=== PATIENT | male | born 1985 | race Caucasian/White ===

== ENCOUNTER 2017-01-25 20:29 | Emergency (ER) | payer OTHER ==
[2017-01-25] MEDS ORDERED: TETRACAINE HCL 0.5% OPH SOLN 2 ML OU ONE (21:34)
--- NOTE | 2017-01-25 22:14 | ER Document Report ---
ED Eye Complaint - General Chief Complaint: Eye Injury Stated Complaint: EYE INJURY Mode of Arrival: Ambulatory Information source: Patient TRAVEL OUTSIDE OF THE [place] IN LAST 30 DAYS: No - HPI Patient complains to provider of: eye injury Onset: This evening Notes: Patient states that his toddler actively poked him in the right eye with his fingernail and he now has what he thinks is a scratch to the eye. He continues to have pain and photophobia. Difficult for him to tell if he has any blurred vision because it hurts for him to open his eye. After his eye is numb his vision seems to be okay. He denies any other injuries. His tetanus is up-to- date. Light makes it worse, nothing makes it better. No drainage. No nausea, vomiting, diarrhea. No fever. No other complaints. Not wear contacts. - Related Data Allergies/Adverse Reactions: No Known Allergies Allergy (Verified 08/08/13 17:20) Past Medical History - Social History Smoking Status: Unknown if Ever Smoked Family History: Reviewed & Not Pertinent Patient has suicidal ideation: No Patient has homicidal ideation: No Renal/ Medical History: Denies: Hx Peritoneal Dialysis Past Surgical History: Reports: Hx Genitourinary Surgery - Circumcised, Hx Myringotomy, Hx Orthopedic Surgery - R FOOT/L HAND - Immunizations Hx Diphtheria, Pertussis, Tetanus Vaccination: - UNKNOWN Review of Systems - Review of Systems -: Yes All other systems reviewed and negative Physical Exam - Vital signs Vitals: Temp Pulse Resp BP Pulse Ox 97.8 F 72 18 144/93 H 98 01/25/17 21:07 01/25/17 21:07 01/25/17 21:07 01/25/17 21:07 01/25/17 21:07 - Notes Notes: GENERAL: alert, cooperative, nontoxic, no distress. HEAD: normocephalic, atraumatic EYES: Pupils equal round react to light bilaterally, extraocular muscles are intact bilaterally. Mild injection to the right eye. No hyphema. No foreign body seen. Small corneal abrasion noted at 6:00 with fluorescein staining. No dendritic lesions. Negative Solomon sign. Patient felt significantly better after tetracaine drops were applied. EARS: no external swelling, no external redness NOSE: atraumatic, no external swelling MOUTH/THROAT: mucous membranes moist and pink NECK: soft, supple, full range of motion, no meningismus. CHEST: no distress, lungs clear and equal throughout. No wheezing, rales, rhonchi. CARDIAC: regular rate and rhythm, no murmur, normal capillary refill, normal pulses. BACK: full range of motion, no CVA tenderness. EXTREMITIES: full range of motion of all extremities. No redness, no swelling. NEURO: alert and oriented 3, no focal deficits, full range of motion of all extremities. PYSCH: appropriate mood, affect. Patient is cooperative. SKIN: pink, warm, dry, no rash. Course - Re-evaluation Re-evalutation: 01/25/17 22:11 Patient is nontoxic and stable vitals. The patient was poked in his right eye by his toddler and now has a small corneal abrasion to the eye. Feeling much better after tetracaine drops. Please see nursing notes for visual acuity. Patient will be discharged home with a prescription for Polytrim. Follow up. Though if not improving in the next 2 days, sooner for increased pain, fever, drainage, or any further concerns. The patient is noted to have elevated blood pressure during today's emergency department visit. The patient was informed of this finding. The patient was instructed that this may be related to pre-hypertension and requires further evaluation with a primary care provider. The patient has no hypertensive symptoms at this time. The patient's emergency department workup and current diagnosis were explained to the patient and or family. Follow-up instructions were provided. Medications if prescribed were discussed. Instructions for when to return to the emergency department including specific worrisome symptoms were discussed with the patient and/or family. - Vital Signs Vital signs: Temp Pulse Resp BP Pulse Ox 97.8 F 72 18 144/93 H 98 01/25/17 21:07 01/25/17 21:07 01/25/17 21:07 01/25/17 21:07 01/25/17 21:07 Discharge - Discharge Clinical Impression: Right corneal abrasion Qualifiers: Encounter type: initial encounter Qualified Code(s): S05.01XA - Injury of conjunctiva and corneal abrasion without foreign body, right eye, initial encounter Condition: Stable Disposition: HOME, SELF-CARE Additional Instructions: His medications as prescribed. Follow-up with eye doctor if not better in 2 days, sooner for increased pain, fever, redness, drainage, borderline vision, or any further concerns. Your blood pressure was elevated during today's visit. Have this rechecked with your doctor. Prescriptions: Polymyxin B Sulf/Trimethoprim [Polytrim Eye Drops] 2 drop OP Q6H #1 bottle Forms: Elevated Blood Pressure
[2017-01-25 22:44] VITALS: BP 151/97
== END 2017-01-25 22:22 | disposition home or self-care (01) ==
LOC: ER 20:29
DX: S05.01XA Injury of conjunctiva and corneal abrasion without foreign body, right eye, initial encounter (principal); W50.0XXA Accidental hit or strike by another person, initial encounter; R03.0 Elevated blood-pressure reading, without diagnosis of hypertension
CPT/HCPCS: 99283

== ENCOUNTER 2018-10-29 21:17 | Emergency (ER) | payer SELFPAY ==
[2018-10-29] MEDS ORDERED: IPRATROPIUM/ALBUTEROL 0.5-2.5 MG/3 ML AMPUL NEB ONE (23:33)
--- NOTE | 2018-10-29 23:35 | ER Document Report ---
ED Medical Screen (RME) - General Chief Complaint: Shortness Of Breath Stated Complaint: SHORTNESS OF BREATH Time Seen by Provider: 10/29/18 23:32 Mode of Arrival: Ambulatory Information source: Patient Notes: 33-year-old male presents to ED for complaint of cough cold congestion body aches dizziness and sweating for 2 weeks. He states he went to the urgent care and was started on doxycycline prednisone Tessalon and albuterol inhaler but is not getting any better. He does have wheezes at this time. He states he has not been febrile. Patient is alert oriented respirations regular and unlabored speaking in full sentences walks with a even steady gait. Patient does have wheezes in the emergency room. He has been ordered a chest x-ray albuterol and DuoNeb nebulizers. He has been taking his prednisone as ordered has 4 pills left taken 60 mg a day. Patient states he is a former smoker and former seizures but does not smoke at this time. I have greeted and performed a rapid initial assessment of this patient. A comprehensive ED assessment and evaluation of the patient, analysis of test results and completion of medical decision making process will be conducted by an additional ED providers. TRAVEL OUTSIDE OF THE [place] IN LAST 30 DAYS: No - Related Data Allergies/Adverse Reactions: No Known Allergies Allergy (Verified 08/08/13 17:20) Past Medical History Renal/ Medical History: Denies: Hx Peritoneal Dialysis Past Surgical History: Reports: Hx Genitourinary Surgery - Circumcised, Hx Myringotomy, Hx Orthopedic Surgery - R FOOT/L HAND - Immunizations Hx Diphtheria, Pertussis, Tetanus Vaccination: - UNKNOWN Physical Exam - Vital signs Vitals: Temp Pulse Resp BP Pulse Ox 98.2 F 100 20 153/85 H 96 10/29/18 21:55 10/29/18 21:55 10/29/18 21:55 10/29/18 21:55 10/29/18 21:55 Course - Vital Signs Vital signs: Temp Pulse Resp BP Pulse Ox 98.2 F 100 20 153/85 H 96 10/29/18 21:55 10/29/18 21:55 10/29/18 21:55 10/29/18 21:55 10/29/18 21:55
[2018-10-29] MEDS: ALBUTEROL SULFATE 0.083% NEB 2.5 MG/3 ML AMPUL NEB SCH (23:39)
[2018-10-30] MEDS: ALBUTEROL SULFATE 0.083% NEB 2.5 MG/3 ML AMPUL NEB SCH (00:16)
[2018-10-30 00:21] LABS: HEMATOCRIT 52.1 % (37.9-51.0); HEMOGLOBIN 18.1 g/dL (13.5-17.0); MEAN CORPUSCULAR HEMOGLOBIN 30.7 pg (27.0-33.4); MEAN CORPUSCULAR HGB CONC 34.7 g/dL (32.0-36.0); MEAN CORPUSCULAR VOLUME 89 fl (80-97); PLATELET COUNT 431 10^3/uL (150-450); RED BLOOD COUNT 5.89 10^6/uL (4.35-5.55); RED CELL DISTRIBUTION WIDTH 13.2 % (11.5-14.0); WHITE BLOOD COUNT 21.9 10^3/uL (4.0-10.5)
[2018-10-30 00:31] LABS: ALANINE AMINOTRANSFERASE 90 U/L (21-72); ALKALINE PHOSPHATASE 140 U/L (38-126); ANION GAP 11 (5-19); ASPARTATE AMINO TRANSFERASE 31 U/L (17-59); BILIRUBIN,DIRECT 0.2 mg/dL (0.0-0.4); BILIRUBIN,TOTAL 0.4 mg/dL (0.2-1.3); BLOOD UREA NITROGEN 19 mg/dL (7-20); CALCIUM 10.4 mg/dL (8.4-10.2); CARBON DIOXIDE 27 mmol/L (22-30); CHLORIDE 102 mmol/L (98-107); GLUCOSE 122 mg/dL (75-110); POTASSIUM 5.2 mmol/L (3.6-5.0); SODIUM 140.4 mmol/L (137-145); TOTAL PROTEIN 7.6 g/dL (6.3-8.2)
[2018-10-30 00:40] LABS: ABSOLUTE LYMPHOCYTES# (MANUAL) 2.6 10^3/uL (0.5-4.7); ABSOLUTE MONOCYTES # (MANUAL) 1.8 10^3/uL (0.1-1.4); ABSOLUTE NEUTROPHILS# (MANUAL) 17.5 10^3/uL (1.7-8.2); BAND NEUTROPHILS % (MANUAL) 2 % (3-5); BASOPHILS % (MANUAL) 0 % (0-2); EOSINOPHILS % (MANUAL) 0 % (0-6); LYMPHOCYTES % (MANUAL) 12 % (13-45); METAMYELOCYTES % (MANUAL) 1 % (0); MONOCYTES % (MANUAL) 8 % (3-13); NUCLEATED RED BLOOD CELLS 1 /100 WBC (0); SEGMENTED NEUTROPHILS % (MAN) 77 % (42-78); TOTAL CELLS COUNTED 100
[2018-10-30 00:42] LABS: PLATELET COMMENT ADEQUATE; RBC MORPHOLOGY COMMENT NORMO-CYTIC/CHROMIC
--- NOTE | 2018-10-30 00:52 | RADIOLOGY REPORT (SQ) ---
EXAM DESCRIPTION: XR CHEST 2 VIEWS COMPLETED DATE/TME: 10/29/2018 23:32 CLINICAL HISTORY: 33 years Male, Cough congestion wheezing COMPARISON: None. NUMBER OF VIEWS/TECHNIQUE: 1/AP FINDINGS: Adequate lung volume, clear parenchyma, normal cardiac silhouette, and intact bony thorax. IMPRESSION: No acute cardiopulmonary findings.
[2018-10-30] MEDS ORDERED: METHYLPREDNISOLONE INJ 125 MG/2 ML SDV IV ONE (03:43)
[2018-10-30] MEDS ORDERED: NORMAL SALINE 1000 ML 1,000 ML IV ONE (03:43)
[2018-10-30] MEDS ORDERED: IPRATROPIUM/ALBUTEROL 0.5-2.5 MG/3 ML AMPUL NEB ONE (03:44)
--- NOTE | 2018-10-30 03:46 | ER Document Report ---
ED Respiratory Problem - General Chief Complaint: Shortness Of Breath Stated Complaint: SHORTNESS OF BREATH Time Seen by Provider: 10/29/18 23:32 Mode of Arrival: Ambulatory Notes: Patient is a 33-year-old male, former smoker, that comes to the emergency department for chief complaint of cough, congestion, wheezing, occasional sweats and chills for the past 2 weeks. He was seen in urgent care, started on doxycycline, Tessalon, prednisone, and an albuterol inhaler. He states he feels like he is worse. Denies history of the same. Denies any daily medications or known medical history. He has approximately 2 days less of his doses of prednisone. TRAVEL OUTSIDE OF THE [place] IN LAST 30 DAYS: No - Related Data Allergies/Adverse Reactions: No Known Allergies Allergy (Verified 08/08/13 17:20) Past Medical History - General Information source: Patient - Social History Smoking Status: Never Smoker Frequency of alcohol use: None Drug Abuse: None Lives with: Family Family History: Reviewed & Not Pertinent Patient has suicidal ideation: No Patient has homicidal ideation: No Renal/ Medical History: Denies: Hx Peritoneal Dialysis Past Surgical History: Reports: Hx Genitourinary Surgery - Circumcised, Hx Myringotomy, Hx Orthopedic Surgery - R FOOT/L HAND - Immunizations Hx Diphtheria, Pertussis, Tetanus Vaccination: - UNKNOWN Review of Systems - Review of Systems Constitutional: See HPI EENT: See HPI Cardiovascular: No symptoms reported Respiratory: See HPI Gastrointestinal: No symptoms reported Genitourinary: No symptoms reported Male Genitourinary: No symptoms reported Musculoskeletal: No symptoms reported Skin: No symptoms reported Hematologic/Lymphatic: No symptoms reported Neurological/Psychological: No symptoms reported Physical Exam - Vital signs Vitals: Temp Pulse Resp BP Pulse Ox 98.2 F 100 20 153/85 H 96 10/29/18 21:55 10/29/18 21:55 10/29/18 21:55 10/29/18 21:55 10/29/18 21:55 - Notes Notes: GENERAL: Uncomfortable because of frequent tight coughing episodes HEAD: Normocephalic, atraumatic. EYES: Pupils equal, round, and reactive to light. Extraocular movements intact. ENT: Oral mucosa moist, tongue midline. Oropharynx unremarkable. Airway patent. Mild sinus congestion, no nasal septal hematoma, TM's intact. NECK: Full range of motion. Supple. Trachea midline. LUNGS: Scattered coarse breath sounds with expiratory wheezes and frequent tight coughing episodes. No tachypnea or labored breathing. Speaks in almost full sentences. HEART: Regular rate and rhythm. No murmur ABDOMEN: Soft, non-tender. Non-distended. Bowel sounds present in all 4 quadrants. GENITOURINARY: Deferred EXTREMITIES: Moves all 4 extremities spontaneously. No edema, normal radial and dorsalis pedis pulses bilaterally. No cyanosis. BACK: no cervical, thoracic, lumbar midline tenderness. No saddle anesthesia, normal distal neurovascular exam. NEUROLOGICAL: Alert and oriented x3. Normal speech. [cranial nerves II through XII grossly intact]. PSYCH: Normal affect, normal mood. SKIN: Warm, dry, normal turgor. No rashes or lesions noted. Course - Re-evaluation Re-evalutation: Chest x-ray reviewed and unremarkable. Reported symptoms and evaluation are consistent with bronchitis. Patient does work a lot outside in the elements. Former smoker but recently quit within the past year. Initially expiratory wheezes throughout with frequent coughing episodes, no hy poxia. After DuoNeb's, magnesium, IV fluids, Solu-Medrol patient is improved but not resolved. He ambulated without desaturation or labored breathing. He states he would like to go home. He is stable for discharge at this time but I discussed options. Patient will be placed on tapering prednisone because of continued use but need for more relief, he will complete his doxycycline, he is provided with a spacer for his inhaler, he will be provided with cough medicine to help and finally sleep. Patient states satisfaction and agreement. Stable at time of discharge. - Vital Signs Vital signs: Temp Pulse Resp BP Pulse Ox 98.5 F 100 21 H 137/82 H 95 10/30/18 05:01 10/29/18 21:55 10/30/18 04:00 10/30/18 05:01 10/30/18 05:01 - Laboratory Result Diagrams: 10/29/18 23:45 10/29/18 23:45 Laboratory results interpreted by me: 10/29/18 10/29/18 23:45 23:45 WBC 21.9 H RBC 5.89 H Hgb 18.1 H Hct 52.1 H Band Neutrophils % 2 L Lymphocytes % (Manual) 12 L Metamyelocytes % 1 H Abs Neuts (Manual) 17.5 H Abs Monocytes (Manual) 1.8 H Potassium 5.2 H Glucose 122 H Calcium 10.4 H ALT 90 H Alkaline Phosphatase 140 H Discharge - Discharge Clinical Impression: Cough, Wheezing Upper respiratory infection Qualifiers: URI type: unspecified URI Qualified Code(s): J06.9 - Acute upper respiratory infection, unspecified Condition: Stable Disposition: HOME, SELF-CARE Additional Instructions: Your x-ray is normal. Your evaluation is consistent with a bad bronchitis. Complete the additional prednisone taper (lowering dose) as we discussed, complete your current antibiotic, use the spacer with your inhaler every 4-6 hours as needed, use the Tessalon for cough during the day and then the syrup to help you sleep. Follow-up with primary care. Return if you worsen including developing fever, increased difficulty breathing, or any other concerning or worsening symptoms. Prescriptions: Hydrocodone Bit/Homatropine [Hycodan Syrup 5-1.5 mg/5 ml Ud Cup] 5 ml PO Q4HP PRN #120 ml PRN Reason: Prednisone [Deltasone 10 mg Tablet] 10 mg PO ASDIR PRN #21 tablet PRN Reason: Forms: Return to Work
[2018-10-30] MEDS: MAGNESIUM SULFATE/D5W 1 GM/100 ML RTUPB IV SCH ×2 (03:59→04:20)
[2018-10-30 05:14] VITALS: BP 137/82
== END 2018-10-30 05:15 | disposition home or self-care (01) ==
LOC: ER 21:17
DX: J06.9 Acute upper respiratory infection, unspecified (principal); R05 Cough; R06.2 Wheezing; R61 Generalized hyperhidrosis; R68.83 Chills (without fever)
CPT/HCPCS: 94640 ×2; 99285; 96375; 96365; 36415; 85025; 80053; 71046; J2930; J3475; J7030; J7620 ×2